=== PATIENT | female | born 2005 | race Two or more races ===

== ENCOUNTER 2024-05-30 20:49 | Emergency (ER) | payer MEDICAID, SELFPAY ==
[2024-05-30 20:51] VITALS: BMI 27.1
[2024-05-30 21:11] VITALS: BP 134/83; PULSE 84; RESP 16; TEMP 37.4; O2SAT 96
--- NOTE | 2024-05-30 21:16 | EKG_ITS ---
[facility] Test Date: 2024-05-30 Pat Name: MERCED MOLINA Department: Room: - Gender: Female [employer]: : 2005 Requested By: Robert Dykes ([facility]) Order Number: [id number] Reading MD: Robert Dykes ([facility]) Measurements Intervals Carpenter Rate: 89 P: 66 DE: 160 QRS: 101 QRSD: 82 T: 45 QT: 341 QTc: 415 Interpretive Statements SINUS RHYTHM MARKED RIGHT AXIS DEVIATION [QRS AXIS > 100] No previous ECG available for comparison /[id number]/[email or web address]/[id number].pdf
--- NOTE | 2024-05-30 21:17 | XR_ITS ---
Examination: PA lateral chest 2 views Technique: Upright AP lateral chest 2 views Exam date and time: May 30, 2024 2109 hrs. Indications: Lower abdominal pain after coughing 2 months Findings: Normal heart size No pneumonia or pulmonary edema The osseous structures are intact Impression: No pneumonia identified
--- NOTE | 2024-05-30 21:17 | PD.EDURI ---
Upper Respiratory Inf. RME/HPI General Chief Complaint: Abdominal Pain Stated Complaint: Lower abdominal pain after coughing Time Seen by Provider: 05/30/24 21:10 Source: patient Arrival date/time: 05/30/24 20:49 19-year-old female no significant past medical history presents emergency department complaining of left rib pain with cough and difficulty breathing for several days. Patient reports recently seen primary care provider and was told she had viral bronchitis. Patient denies any fever, chills, vomiting, diarrhea, dysuria, or any other associated symptom. Mode of arrival: ambulatory Limitations: no limitations Related Data Previous Rx's ?Medication ?Instructions ?Recorded acetaminophen 500 mg capsule 500 mg PO Q6H PRN pain #30 caps 05/30/24 ibuprofen 600 mg tablet 600 mg PO Q8H PRN pain #20 tabs 05/30/24 Allergies Allergy/AdvReac Type Severity Reaction Status Date / Time shrimp Allergy Intermediate RASH,THROAT Verified 08/26/20 18:15 CLOSES Review of Systems Review of Systems Systems Reviewed: All systems reviewed, normal except as documented Constitutional Constitutional: Reports system reviewed and no additional complaints, except as documented, Denies body ache(s), Denies chills and Denies fever(s) Eyes Eyes: Reports system reviewed and no additional complaints, except as documented and Denies change in vision ENT Ears, Nose, Mouth, and Throat: Reports system reviewed and no additional complaints, except as documented, Denies disequilibrium, Denies dizziness, Denies sore throat and Denies vertigo Cardiovascular Cardiovascular: Reports system reviewed and no additional complaints, except as documented, Denies chest pain and Reports dyspnea Respiratory Respiratory: Reports system reviewed and no additional complaints, except as documented, Denies chest congestion, Reports cough, Reports dyspnea and Reports other (Rib pain) Gastrointestinal Gastrointestinal: Reports system reviewed and no additional complaints, except as documented, Denies abdominal pain, Denies nausea and Denies vomiting Musculoskeletal Musculoskeletal: Reports system reviewed and no additional complaints, except as documented, Denies abnormal gait and Denies arthralgias Integumentary/Breasts Skin/Breast: Reports system reviewed and no additional complaints, except as documented, Denies erythema, Denies rash and Denies wounds Neurologic Neurologic: Reports system reviewed and no additional complaints, except as documented, Denies abnormal gait, Denies disequilibrium, Denies dizziness and Denies vertigo Past Medical History Past Medical History CARDIAC: Negative Congestive Heart Failure RESPIRATORY: Negative Chronic Obstructive Pulmonary Disease (COPD) GENITOURINARY: Negative Renal Disease ENDOCRINE: Negative Diabetes Mellitus Type 1 or Diabetes Mellitus Type 2 Social History SMOKING STATUS: Never smoker ED Exam General Limitations: Present no limitations General appearance: Present alert and in no apparent distress Head Head exam: Present atraumatic Eye Eye exam: Present normal appearance, PERRL and EOMI ENT ENT exam: Present normal exam, normal oropharynx and mucous membranes moist Neck Neck exam: Present normal inspection, full ROM and trachea midline Chest Chest inspection: Present normal inspection and symmetric chest wall rise Respiratory Respiratory exam: Present normal lung sounds bilaterally Cardiovascular Cardiovascular exam: Present regular rate, normal rhythm and normal heart sounds Abdominal Exam Abdominal exam: Present soft and normal bowel sounds Extremities Exam Extremities exam: Present normal inspection and full ROM Back Exam Back exam: Present normal inspection and full ROM Neurological Exam Neurological exam: Present alert, oriented X3 and CN II-XII intact Psychiatric Psychiatric exam: Present normal affect and normal mood Skin Skin exam: Present warm, dry, intact and normal color Course Quality Measures none Orders Category Date Time Status Bedside Influenza A&B Antigen Test NOW Care 05/30/24 21:17 Completed EKG (ED ONLY) *Do not use* NOW Care 05/30/24 21:17 Completed EKG (ED Only) Stat Exams 05/30/24 21:16 Draft XR chest 2V Stat Exams 05/30/24 21:17 Completed HCG Qualitative,Urine Stat Lab 05/30/24 22:05 Completed Urinalysis, C/S if Indicated Stat Lab 05/30/24 22:05 Completed Ketorolac Inj [Toradol Inj] Med 05/30/24 21:36 Discontinued 30 mg IM X1 ONE Vital Signs Vital signs: Vital Signs Temperature 99.3 F 05/30/24 21:11 Pulse Rate 84 05/30/24 21:11 Respiratory Rate 16 05/30/24 21:11 Blood Pressure 134/83 H 05/30/24 21:11 Pulse Oximetry (%) 96 05/30/24 21:11 Oxygen Delivery Method Room Air 05/30/24 21:11 96% room air within normal limits Procedures -ED EKG Interpretation #1: Date of EK05/30/24 Time of EK:22 Rate: 89 Interpretation: Interpreted by me EKG Impression: Normal sinus rhythm, No acute ST-T changes, No ectopy, No ischemic changes and Normal QRS Upper Respiratory Infection MDM Narrative MDM Narrative:: 19-year-old female no significant past medical history presents emergency department complaining of left rib pain with cough and difficulty breathing for several days. Patient reports recently seen primary care provider and was told she had viral bronchitis. Patient denies any fever, chills, vomiting, diarrhea, dysuria, or any other associated symptom. Chest x-ray unremarkable for any pneumonia. EKG sinus rhythm. No adventitious lung sounds on auscultation. Abdomen is soft and nontender. Urinalysis unremarkable. negative. Patient likely has viral upper respiratory infection. Patient data External records reviewed:: [facility] previous records Clinical information provided by:: patient Social determinants that could affect healthcare access:: none Patient has the following chronic illnesses:: None How is presenting disease/condition affected by chronic disease/condition?: no chronic disease Evaluation data The following diagnostics were reviewed and interpreted by me:: lab results and radiology exam(s) Lab and/or radiology exams considered but not ordered:: Ordered Interpretation Summary: Interpreted by me Medications / Prescriptions Medications or Prescriptions considered but not ordered:: Ordered Medication administrations:: Medication Administration History Discontinued Medications Ketorolac Tromethamine (Ketorolac Inj 60 Mg/2 Ml Vial) 30 mg IM X1 ONE Stop: 05/30/24 21:37 Last Admin: 05/30/24 22:02 Dose: 30 mg Documented By: Given Consultations Consultation(s) initiated? (list below): No Diagnosis Upper Respiratory Differential Diagnosis: upper respiratory infection, otitis media, sinusitis, viral infection, bronchitis, influenza and pharyngitis Most likely diagnosis given after review of the tests above:: Viral infection Admission Indicated Admission indicated?: not indicated Admission Request Was there a request for admission?: No Disposition Plan Disposition Plan: Discharge Discharge Attestation Discharge Attestation: The patient and all family members were given an opportunity to ask questions and understood the discharge instructions. Discharge instructions specifically effects, indications for sooner follow up or return to the emergency department, and the expected course of current diagnosis. Patient condition: Stable Discharge Plan Plan Patient Disposition: HOME (Self Care) Disposition Comment: Stable Prescriptions/Referrals Prescriptions/Med Rec: New ibuprofen 600 mg tablet 600 mg PO Q8H PRN (Reason: pain) Qty: 20 0RF acetaminophen 500 mg capsule 500 mg PO Q6H PRN (Reason: pain) Qty: 30 0RF Referrals: Cynthia Louis FNP [Primary Care Provider] - In 1 week Problem List Clinical Impression: Viral infection Patient/Caregiver Discharge Instructions Discharge Activity: activity as tolerated Education Materials: ED Viral Syndrome (Adult) Additional Instructions: Drink plenty of fluids and get plenty of rest. Take ibuprofen or Tylenol as needed for fever or pain. Follow-up with primary care provider in 2 to 3 days. Return to emergency department for any worsening symptoms or as needed. Print Language: Citizen [place] Stand Alone Forms: Edilma Award Info., Patient Portal Info Letter FEI/[employer]ST[employer]ER Supervising Physician FEI/MYLA Supervising Physician: Dr. Baker
[2024-05-30] MEDS: KETOROLAC INJ 60 MG/2 ML VIAL 30 MG IM (22:02)
[2024-05-30 22:12] LABS: Collection Type, Urine Clean Catch
[2024-05-30 22:34] LABS: Bilirubin,Urine Negative (Negative); Blood,Urine Negative (Negative); Clarity,Urine Clear (Clear/Hazy); Color,Urine Lt-Yellow (Lt Yel-Yel); Culture Indicated,Urine Not Indicated; Glucose, Urine Negative (Negative); Ketones,Urine Negative (Negative); Leukocyte Esterase,Urine Negative (Negative); Nitrite,Urine Negative (Negative); PH,Urine 5.5 (5.0-7.0); Protein,Urine Negative (Neg - Trace); RBC,Urine 2 /hpf (0-3); Specific Gravity,Urine 1.028 (1.001-1.035); Squamous Epithelial Cell,Urine 1 /hpf (0-5); Urobilinogen,Urine Negative mg/dL (0.0-1.0); WBC,Urine < 1 /hpf (0-5)
[2024-05-30 22:35] LABS: HCG Qualitative,Urine Negative
== END 2024-05-30 23:19 | disposition home or self-care (01) ==
PROVIDERS: Emergency Provider Emergency Medicine; PCP Nurse Practitioner Family
DX: B34.9 Viral infection, unspecified (principal)
CPT/HCPCS: 71046; 81001; 81025; 87400; 93005; 96372; 99283; J1885